=== PATIENT | female | born 1940 | race African-American/Black ===

== ENCOUNTER → 2016-08-04 | Outpatient (CLI) | payer MEDICARE, OTHER ==
[2014-05-06 16:07] VITALS: BP 217/96
--- NOTE | 2016-08-04 17:32 | KCIC ---
Left breast diagnostic digital mammograms with CAD: HISTORY COMPARISON Comparison is made to previous studies dated 02/12/2016, 09/03/2015 and 02/13/2015. FINDINGS Breast density category B. The skin and nipple show no abnormalities. No abnormal lymph nodes are seen in the axilla. The breast parenchyma shows scattered fibroglandular density. There are no dominant masses, suspicious calcifications or architectural distortions. Benign appearing calcifications are present IMPRESSION No evidence of malignancy. Ultrasound to follow. This study was interpreted with the benefit of Computerized Aided Detection (CAD). Mammography is not 100% sensitive in detecting breast cancer. Therefore, a self breast exam and a clinical breast exam are very important. A negative mammogram does not negate a clinically suspicious finding and should not result in a delay in biopsying a clinically suspicious abnormality. BI-RADS category 0: Incomplete. Ultrasound to follow. Left breast ultrasound: Comparison is made to previous study dated 02/12/2016. In the 9:30 position 8 centimeters from the nipple, there is a hyperechoic circumscribed lesion in parallel orientation measuring 1 centimeter in greatest dimension consistent with a lipoma. No other cystic or solid lesions are seen. Impression: Small lipoma at the 9:30 position. No suspicious abnormalities seen. Recommend routine mammographic followup. BI-RADS category 2: Benign. This patient's information has been entered into a reminder system for the patient to be notified with the results of this examination and a target date for her next mammograms. Electronically signed by: Madeleine Grimes MD (Aug 04, 2016 17:30:45)
== END | disposition home or self-care (01) ==
LOC: KCIC MAMMO 13:15
PROVIDERS: ATTEND Internal Medicine
DX: N63 Unspecified lump in breast (principal)
CPT/HCPCS: 76641; G0206; 77065

== ENCOUNTER → 2016-08-19 | Outpatient (CLI) | payer MEDICARE, OTHER ==
[2014-05-06 16:07] VITALS: BP 217/96
--- NOTE | 2016-08-19 10:12 | RAD ---
Abdominal ultrasound, 08/19/2016: History: Abnormal liver function test The gallbladder is surgically absent. The common hepatic duct measures 8 mm which is within normal limits for the postcholecystectomy state. No intrahepatic biliary ductal dilatation is seen. The liver is at the upper limits of normal in size. There is a 1.5 cm cyst in the left lobe. No other hepatic lesion is seen. The pancreatic body is unremarkable. Other portions of the pancreas were obscured by overlying bowel. The spleen is of normal size. No renal abnormality is detected. The mid and distal abdominal aorta were obscured by overlying bowel. The visualized portions of inferior vena cava are unremarkable. No free fluid is evident in the abdomen. IMPRESSION: 1. Status post cholecystectomy. 2. Small hepatic cyst. 3. No acute abdominal abnormality is detected.
== END | disposition home or self-care (01) ==
LOC: US 07:49
PROVIDERS: ATTEND Internal Medicine Gastroenterology
DX: K76.89 Other specified diseases of liver (principal); Z90.49 Acquired absence of other specified parts of digestive tract
CPT/HCPCS: 76700

== ENCOUNTER → 2017-02-24 | Outpatient (CLI) | payer MEDICARE, OTHER ==
[2014-05-06 16:07] VITALS: BP 217/96
--- NOTE | 2017-02-25 09:12 | KCIC ---
DATE: 02/25/2017. EXAM: MAMMO MINO SCREENING BILATERAL. HISTORY: Routine mammographic screening. COMPARISON: 08/04/2016, 02/12/2016, 09/03/2015, 02/28/2015, 02/13/2015. This study was interpreted with the benefit of Computerized Aided Detection (CAD). FINDINGS: The breast parenchyma shows scattered fibroglandular densities. Breast parenchyma level B.. There are no suspicious masses, microcalcifications or architectural distortion. Nodules superolaterally and slightly medially on the right have stable correlates. Small nodules on the left are also stable. Scattered and coarse calcifications bilaterally are stable and benign. BI-RADS CATEGORY: 2 BENIGN FINDING(S). RECOMMENDED FOLLOW-UP: 12M 12 MONTH FOLLOW-UP. PQRS compliance statement: Patient information was entered into a reminder system with a target due date 02/25/2018 for the next mammogram. Mammography is a sensitive method for finding small breast cancers, but it does not detect them all and is not a substitute for careful clinical examination. A negative mammogram does not negate a clinically suspicious finding and should not result in delay in biopsying a clinically suspicious abnormality. "Our facility is accredited by the [employer] Mammography Program."
== END | disposition home or self-care (01) ==
LOC: KCIC MAMMO 15:11
PROVIDERS: ATTEND Internal Medicine
DX: Z12.31 Encounter for screening mammogram for malignant neoplasm of breast (principal)
CPT/HCPCS: 77063; G0202; 77067

== ENCOUNTER → 2017-03-23 | Outpatient (CLI) | payer MEDICARE ==
[2014-05-06 16:07] VITALS: BP 217/96
--- NOTE | 2017-03-23 14:24 | KCIC ---
Bone mineral density exam History: Postmenopausal Comparison: 03/09/2015 Findings: Bone mineral density examination utilizing DEXA was performed. Left hip bone mineral density of 1.272 g/cm2 corresponds with a T score 2.7, Z score 2.8. Compared with the previous exam, there has been -2.4% decrease. The bone mineral density of the lumbar spine was 1.434 g/cm2 which corresponds with a T-score of 3.5, Z score 5.2. Compared with the previous exam, there has been 2.3% increase. By World [employer] on Osteoporosis criteria, a T score of 0 to-1 SD is considered to be within normal limits. A T score of -1 to -2.5 SD is considered osteopenia. A T score less than -2.5 SD is considered osteoporosis Impression: 1. There is normal bone density of the lumbar spine and the left hip. Electronically signed by: Dilip Burk MD (03/23/2017 2:21 PM) [id number]
== END | disposition home or self-care (01) ==
LOC: KCIC DEXA 12:47
PROVIDERS: ATTEND Nurse Practitioner
DX: Z78.0 Asymptomatic menopausal state (principal)
CPT/HCPCS: 77080

== ENCOUNTER → 2018-03-01 | Outpatient (CLI) | payer MEDICARE ==
[2014-05-06 16:07] VITALS: BP 217/96
--- NOTE | 2018-03-02 13:32 | KCIC ---
3d digital tomography Bilateral History: Routine screening Technique: Bilateral 3d digital tomographic views were obtained with [employer] and reviewed on a [employer] workstation. In addition, CAD - computer aided detection was utilized. Comparison: February 12, 2016. Findings: Breast Tissue Density B : The breast tissue is composed of mixed fatty and fibroglandular tissue. There are no suspicious masses, microcalcifications or areas of architectural distortion. Impression: No suspicious findings. BI-RADS Category 1: Negative. Normal interval followup. The patient will receive a letter with the results in the mail. A mammogram does not have 100% sensitivity and therefore a negative imaging study should not delay further work up of a suspicious abnormality. Patient information is entered into the [facility] reminder system using [employer] with a target due date for the next screening mammogram. The patient will receive a reminder. "Our facility is accredited by the [employer] Mammography Program." Electronically signed by: Calderon Nobles III, MD (03/02/2018 1:29 PM) [id number]
== END | disposition home or self-care (01) ==
LOC: KCIC MAMMO 10:35
PROVIDERS: ATTEND Internal Medicine
DX: Z12.31 Encounter for screening mammogram for malignant neoplasm of breast (principal)
CPT/HCPCS: 77063; 77067

== ENCOUNTER → 2018-06-22 | Outpatient (CLI) | payer OTHER ==
[2014-05-06 16:07] VITALS: BP 217/96
--- NOTE | 2018-06-22 16:36 | RAD ---
EXAM: Abdomen, single view. HISTORY: Pain COMPARISON: None. FINDINGS: Frontal views of the abdomen and pelvis are obtained. There is a moderate amount of stool within the colon. There are prominent air-filled is of bowel within the right upper quadrant. There is no transition point to suggest obstruction. IMPRESSION: Moderate colonic stool and nonspecific air-filled bowel within the left upper quadrant. Correlate for constipation. There is no convincing obstruction. Electronically signed by: Valencia Shepherd MD (06/22/2018 4:33 PM) [id number]
== END | disposition home or self-care (01) ==
LOC: RAD 14:02
PROVIDERS: ATTEND Internal Medicine
DX: R10.9 Unspecified abdominal pain (principal)
CPT/HCPCS: 74018

== ENCOUNTER → 2019-03-02 | Outpatient (CLI) | payer OTHER ==
[2014-05-06 16:07] VITALS: BP 217/96
--- NOTE | 2019-03-02 16:31 | KCIC ---
Bilateral diagnostic digital mammograms with 3-D tomosynthesis: Reason for examination: Routine screening. Comparison is made to previous studies dated 03/01/2018 and 02/24/2017. Bilateral mammograms in CC and oblique projections were obtained with 2-D imaging and 3-D tomosynthesis imaging on a Siemens Inspiration unit and reviewed on the workstation. Interpretation was made with the benefit of CAD. The skin and nipples show no abnormalities. No abnormal axillary lymph nodes are seen. The breast parenchyma shows scattered fatty and fibroglandular density. (Breast density: Category B.) There continues to be a nodular density in the 10:00 position anteriorly in the right breast which is stable. There are no new dominant masses, suspicious calcifications or architectural distortion. Benign calcifications are present. Impression: No evidence of malignancy. Recommend routine screening. BI-RAD Category 2: Benign. "Our facility is accredited by the [employer] Mammography [employer]." This patient's information has been entered into a reminder system for the patient to be notified with the results of her examination and a target date for the next mammogram. Electronically signed by: Bisi Grimes MD (03/02/2019 4:28 PM) [id number]
== END | disposition home or self-care (01) ==
LOC: KCIC MAMMO 11:23
PROVIDERS: ATTEND Internal Medicine
DX: Z12.31 Encounter for screening mammogram for malignant neoplasm of breast (principal); N64.89 Other specified disorders of breast
CPT/HCPCS: 77063; 77067

== ENCOUNTER → 2020-11-02 | Outpatient (CLI) | payer MEDICARE ==
[2014-05-06 16:07] VITALS: BP 217/96
--- NOTE | 2020-11-02 14:19 | KCIC ---
EXAM: XR HIP (WITH OR WITHOUT PELVIS) RIGHT 1 VIEW, XR FEMUR_RIGHT 11/02/2020 11:20 AM CLINICAL INDICATION: Right thigh pain, history of total hip replacement. COMPARISON: None TECHNIQUE: AP view the pelvis and frog-leg lateral view of the right hip, AP and lateral views of th e right femur FINDINGS: Pelvis and right hip: There is a right total hip prosthesis. No periprosthetic lucency or fracture. S uperior medial narrowing of the left hip. Pubic symphysis and sacroiliac joints are maintained. There is lower lumbar degenerative disc disease and facet arthrosis. Right femur: Right hip prosthesis, as above. No acute fracture. There is vague lucency with wide zone of transition in the distal femoral metadiaphysis relative to the rest of the bone on AP view of the not well appreciated on lateral view. 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 IMPRESSION: 1. Right total hip arthroplasty without evidence of complication. 2. Vague lucency in the distal femoral metadiaphysis seen on AP view. This may be artifactual or due to osteopenia, however permeative lytic lesion not entirely excluded. Comparison with contralateral f emur radiograph or AP view of the bilateral knees May be useful. Electronically signed by: Shreya Lora MD (11/02/2020 2:17 PM) [id number]
== END ==
LOC: KCIC 11:06
PROVIDERS: ATTEND Internal Medicine
DX: M89.8X5 Other specified disorders of bone, thigh (principal); M51.36 Other intervertebral disc degeneration, lumbar region; M47.816 Spondylosis without myelopathy or radiculopathy, lumbar region; Z96.641 Presence of right artificial hip joint
CPT/HCPCS: 73501; 73552

== ENCOUNTER → 2020-11-15 | Outpatient (CLI) | payer MEDICARE ==
[2014-05-06 16:07] VITALS: BP 217/96
--- NOTE | 2020-11-15 17:39 | KCIC ---
Bilateral knees 3 views each. HISTORY: Lucency in the right distal femur on prior x-rays Left knee 3 views were taken of the left knee. There is evidence of osteoarthritis with hypertrophic spurring. There is mild joint space narrowing medially. There is no acute fracture. There is hypertrophic spurr ing on the patella and spurring on the femoral condyles. Right knee 3 views were taken of the right knee. There is joint space narrowing in the medial joint compartment. There is no acute fracture. A bony destructive lesion is not identified. There is also mild spurring of the patella. IMPRESSION: 1. Osteoarthritis in both knees. 2. Lucent or bony destructive lesion not identified in the distal femur. Electronically signed by: David Villanueva MD (11/15/2020 5:37 PM) [id number]
== END ==
LOC: KCIC 08:38
PROVIDERS: ATTEND Internal Medicine
DX: M17.0 Bilateral primary osteoarthritis of knee (principal)
CPT/HCPCS: 73562-50

== ENCOUNTER → 2021-03-25 | Outpatient (CLI) | payer MEDICARE ==
[2014-05-06 16:07] VITALS: BP 217/96
--- NOTE | 2021-03-25 18:56 | KCIC ---
Bilateral digital screening 2-D and 3-D (digital breast tomosynthesis) mammogram: Reason for examination: Routine screening. Comparison: Mammograms from 03/05/2020, 03/02/2019, 03/01/2018. Interpretation was made with the benefit of CAD. FINDINGS: Breast density: Category B. There are scattered areas of fibroglandular density. No new suspicious breast mass, malignant appearing calcifications, or architectural distortion is see n. There are unchanged small oval circumscribed masses in both breasts and benign calcifications. IMPRESSION: No evidence of malignancy. Assessment: BI-RADS 2. Benign. Recommendation: Routine screening mammograms. The patient will receive a letter with the results in the mail. Patient information will be entered i nto the mammography reminder system with a target recall date for the next mammogram. A reminder shaunna er will be generated. Electronically signed by: Noni Calabrese MD (03/25/2021 6:54 PM) [id number]
== END ==
LOC: KCIC MAMMO 11:08
PROVIDERS: ATTEND Internal Medicine
DX: Z12.31 Encounter for screening mammogram for malignant neoplasm of breast (principal)
CPT/HCPCS: 77063; 77067